=== PATIENT | male | born 1985 | race Caucasian/White ===

== ENCOUNTER 2018-11-18 11:14 | Emergency (ER) | payer BC, OTHER ==
[2018-11-18 11:24] VITALS: BP 136/92; PULSE 79; RESP 18; TEMP 98.1
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
--- NOTE | 2018-11-18 12:02 | CT ---
EXAMINATION TYPE: CT brain nia [place] con DATE OF EXAM: 11/18/2018 COMPARISON: NONE HISTORY: Injury with headache and neck pain. CT DLP: 1569.4 mGycm. Automated Exposure Control for Dose Reduction was Utilized. TECHNIQUE: CT scan of the head and cervical spine are performed without contrast. FINDINGS: There is no acute intracranial hemorrhage, mass effect, or midline shift identified. The ventricles and sulci are within normal limits in size. Richardson-white matter differentiation is maintai martina. The globes are intact and the visualized sinuses are clear. The calvarium is intact. Cervical spine is visualized in its entirety from C1 through upper thoracic levels and demonstrates s atisfactory alignment without evidence of acute fracture or dislocation. Prevertebral soft tissue ap pears within normal limits. The C1-C2 articulation is within normal limits on the coronal images. V ertebral body heights and disc space heights are maintained. Spinal canal is preserved. Axial images are unremarkable. Lung apices are clear. IMPRESSION: 1. There is no acute fracture or dislocation evident in the cervical spine. 2. No acute intracranial hemorrhage, mass effect, or midline shift is seen.
== END 2018-11-18 12:17 | disposition home or self-care (01) ==
LOC: EC 11:14
DX: S00.83XA Contusion of other part of head, initial encounter (principal); S09.90XA Unspecified injury of head, initial encounter; Z87.891 Personal history of nicotine dependence; W20.8XXA Other cause of strike by thrown, projected or falling object, initial encounter; Y93.89 Activity, other specified; Y92.69 Other specified industrial and construction area as the place of occurrence of the external cause; Y99.0 Civilian activity done for income or pay
CPT/HCPCS: 70450; 72125; 99284

== ENCOUNTER 2018-11-19 17:34 | Emergency (ER) | payer OTHER ==
[2018-11-19] MEDS ORDERED: PROPARACAINE 0.5% OPHTH DROPS 15 ML BTL RIGHT EYE STA (18:08)
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
[2018-11-19] MEDS ORDERED: CEPHALEXIN 500MG STARTER PACK 4 CAP BTL PO STA (19:11)
[2018-11-19 19:34] VITALS: BP 122/74; PULSE 75; RESP 18; TEMP 99
== END 2018-11-19 19:35 | disposition home or self-care (01) ==
LOC: EC 17:34
DX: S02.81XA Fracture of other specified skull and facial bones, right side, initial encounter for closed fracture (principal); H53.141 Visual discomfort, right eye; Z87.891 Personal history of nicotine dependence; W22.8XXA Striking against or struck by other objects, initial encounter; Y92.69 Other specified industrial and construction area as the place of occurrence of the external cause; Y99.0 Civilian activity done for income or pay
CPT/HCPCS: 99283

== ENCOUNTER → 2018-11-19 | Outpatient (CLI) | payer OTHER ==
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
== END | disposition home or self-care (01) ==
LOC: RADCTMAIN 14:27
PROVIDERS: ATTEND Emergency Medicine
DX: S02.40CA Maxillary fracture, right side, initial encounter for closed fracture (principal)
CPT/HCPCS: 70486

== ENCOUNTER → 2022-03-08 | Outpatient (CLI) | payer BC ==
[2022-03-08 22:49] LABS: Hepatitis A Antibody IgM Nonreactive (Nonreactive); Hepatitis B Core IgM Nonreactive (Nonreactive); Hepatitis B Surface Antigen Nonreactive (Nonreactive); Hepatitis C IgG Antibody Nonreactive (Nonreactive)
[2022-03-08 23:24] LABS: % Iron Saturation 49.25 (15.00-50.00); ALT 31 U/L (10-49); AST 28 U/L (14-35); African American GFR (CKD) 112.8 (60.0-200.0); Albumin 4.9 g/dL (3.8-4.9); Albumin/Globulin Ratio 2.14 (1.60-3.17); Alkaline Phosphatase 54 U/L (41-126); Bilirubin, Conjugated <0.20 mg/dL (0.20-0.40); Calcium 9.8 mg/dL (8.7-10.3); Carbon Dioxide 25.4 mmol/L (20.0-27.5); Chloride 100 mmol/L (96-109); Chol/HDL Ratio 2.56 Ratio; Globulin 2.3 g/dL (1.6-3.3); Glucose 92 mg/dL (70-110); Iron 151 ug/dL (65-175); LDL Cholesterol,Calculated 65.1 mg/dL (0.0-131.0); Non-African American GFR(CKD) 97.3 (60.0-200.0); Potassium 4.3 mmol/L (3.5-5.5); Sodium 140 mmol/L (135-145); Total Iron Binding Capacity 307 ug/dL (228-460); Total Protein 7.3 g/dL (6.2-8.2)
[2022-03-09 04:07] LABS: Ceruloplasmin 19.6 mg/dL (20.0-60.0)
[2022-03-09 04:59] LABS: EBV - VCA IgM 19.3 U/mL (<36.0)
[2022-03-09 11:59] LABS: Smooth Muscle Antibody 10 UNITS (<20)
[2022-03-09 14:09] LABS: Alpha 1 Anti-Trypsin 113 mg/dL (90 - 200)
== END | disposition home or self-care (01) ==
LOC: LABWHC1 11:18
PROVIDERS: ATTEND Internal Medicine
DX: E80.6 Other disorders of bilirubin metabolism (principal)
CPT/HCPCS: 36415; 80053; 80061; 80074; 82103; 82104; 82248; 82390; 82525; 83516; 83540; 83550; 86038; 86644; 86645; 86665

== ENCOUNTER → 2022-03-14 | Outpatient (CLI) | payer BC ==
--- NOTE | 2022-03-14 16:41 | US ---
EXAMINATION TYPE: US abdomen complete DATE OF EXAM: 03/14/2022 COMPARISON: NONE CLINICAL HISTORY: E80.6 OTHER DISORDERS OF BILIRUBIN METABOLISM. Hyperbilirubinemia. TECHNIQUE: Multiple sonographic images of the abdomen are obtained. FINDINGS: EXAM MEASUREMENTS: Liver Length: 19.5 cm Gallbladder Wall: 0.28 cm CBD: Obscured Spleen: 12.8 cm Right Kidney: 11.6 x 5.7 x 4.4 cm Left Kidney: 10.8 x 6.2 x 4.9 cm TARP REPAIRER NOTES: Limited due to gas. Pancreas: Not well seen. Liver: Appears enlarged and very coarse in echotexture. Indistinct, hypoechoic area seen near the ga llbladder: 1.7 x 1.0 x 2.7 cm. Gallbladder: Appears anechoic. Evidence for sonographic Flores's sign: No CBD: Obscured Spleen: Appears wnl Right Kidney: No hydronephrosis or masses seen Left Kidney: No hydronephrosis or masses seen Upper IVC: Appears wnl Abd Aorta: Proximal segment appears ectatic. Right iliac measures upper limits at 1.5 cm in transvers e. IMPRESSION: 1. Hepatomegaly 2. Some focal fatty sparing adjacent to the gallbladder bed fossa
== END | disposition home or self-care (01) ==
LOC: RADUSWWP 07:25
PROVIDERS: ATTEND Internal Medicine
DX: K82.9 Disease of gallbladder, unspecified (principal); E80.6 Other disorders of bilirubin metabolism; R16.0 Hepatomegaly, not elsewhere classified
CPT/HCPCS: 76700

== ENCOUNTER → 2023-02-20 | Outpatient (CLI) | payer BC ==
[2023-02-20 15:03] LABS: Basophils # (A) 0.02 X 10*3/uL (0.00-0.10); Basophils % (A) 0.3 %; Eosinophils # (A) 0.11 X 10*3/uL (0.04-0.35); Eosinophils % (A) 1.6 %; HCT 44.7 % (39.6-50.0); HGB 15.3 g/dL (13.0-17.0); Lymphocytes # (A) 1.61 X 10*3/uL (0.90-5.00); Lymphocytes % (A) 23.5 %; MCH 31.2 pg (27.0-32.0); MCHC 34.2 g/dL (32.0-37.0); Mean Platelet Volume 9.9 FL (9.5-12.2); Monocytes # (A) 0.53 X 10*3/uL (0.20-1.00); Monocytes % (A) 7.7 %; NRBC Per 100 WBC 0 X 10*3/uL (0.00-0.01); Neutrophils # (A) 4.58 X 10*3/uL (1.80-7.70); Neutrophils % (A) 66.8 %; Platelet Count 291 X 10*3/uL (140-440); RBC 4.91 X 10*6/uL (4.40-5.60); WBC 6.86 X 10*3/uL (4.50-10.00)
[2023-02-20 15:41] LABS: ALT 18 U/L (10-49); AST 20 U/L (14-35); Albumin 4.9 g/dL (3.8-4.9); Albumin/Globulin Ratio 2.04 Ratio (1.60-3.17); Alkaline Phosphatase 59 U/L (41-126); Bilirubin, Conjugated 0.22 mg/dL (0.20-0.40); Bilirubin,Unconjugated 0.38 mg/dL (0.20-1.00); Blood Urea Nitrogen 13.2 mg/dL (9.0-27.0); Calcium 9.9 mg/dL (8.7-10.3); Carbon Dioxide 24.5 mmol/L (21.6-31.8); Chloride 100 mmol/L (96-109); Chol/HDL Ratio 2.51 Ratio; Globulin 2.4 g/dL (1.6-3.3); Glucose 87 mg/dL (70-110); LDL Cholesterol,Calculated 69.3 mg/dL (0.0-131.0); Potassium 4.6 mmol/L (3.5-5.5); Sodium 139 mmol/L (135-145); Total Bilirubin 0.6 mg/dL (0.3-1.2); Total Protein 7.3 g/dL (6.2-8.2)
== END | disposition home or self-care (01) ==
LOC: LABWHC1 08:04
PROVIDERS: ATTEND Internal Medicine
DX: Z00.00 Encounter for general adult medical examination without abnormal findings (principal); K74.3 Primary biliary cirrhosis
CPT/HCPCS: 36415; 80053; 80061; 82248; 83516; 84443; 85025

== ENCOUNTER → 2023-02-27 | Outpatient (CLI) | payer BC ==
[2023-02-27 18:41] LABS: Blood Urea Nitrogen 11.3 mg/dL (9.0-27.0); Chloride 100 mmol/L (96-109); Glucose 76 mg/dL (70-110); Potassium 4.4 mmol/L (3.5-5.5); Sodium 140 mmol/L (135-145)
[2023-02-27 18:42] LABS: ALT 17 U/L (10-49); AST 23 U/L (14-35); Albumin 4.9 g/dL (3.8-4.9); Albumin/Globulin Ratio 2.04 Ratio (1.60-3.17); Alkaline Phosphatase 52 U/L (41-126); Calcium 10.4 mg/dL (8.7-10.3); Carbon Dioxide 26.2 mmol/L (21.6-31.8); Globulin 2.4 g/dL (1.6-3.3); Total Bilirubin 0.9 mg/dL (0.3-1.2); Total Protein 7.3 g/dL (6.2-8.2)
== END | disposition home or self-care (01) ==
LOC: LABWHC1 14:35
PROVIDERS: ATTEND Internal Medicine Gastroenterology
DX: K74.3 Primary biliary cirrhosis (principal)
CPT/HCPCS: 36415; 80053

== ENCOUNTER → 2023-10-23 | Outpatient (CLI) | payer BC | END | disposition home or self-care (01) | LOC: LABWHC1 11:41 | PROVIDERS: ATTEND Internal Medicine Gastroenterology | DX: R89.4 Abnormal immunological findings in specimens from other organs, systems and tissues (principal) | CPT/HCPCS: 36415; 80053 ==